=== PATIENT | male | born 1975 | race Two or more races ===

== ENCOUNTER 2019-05-06 00:22 | Emergency (ER) | payer SELFPAY ==
[~2019-05-06] VITALS: Ht 172.7 cm; Wt 72.6 kg
[2019-05-06 01:12] LABS: INFLUENZA A PATIENT NEGATIVE (NEGATIVE); INFLUENZA B PATIENT NEGATIVE (NEGATIVE)
[2019-05-06] MEDS ORDERED: IV NORMAL SALINE 1000ML BAG 1,000 ML IV ONE (02:30)
--- NOTE | 2019-05-06 02:31 | PHYS DOC ---
Past Medical History Past Medical History: No Pertinent History Past Surgical History: No Surgical History Alcohol Use: None Drug Use: None Adult General Chief Complaint Chief Complaint: FLU SYMPTOM HPI HPI 44 year old male presents to the emergency department with complaints of flulike symptoms states since Wednesday. Patient states he did go see his doctor on provided antibiotic at that time however states things got worse. She describes productive cough, fever, sore throat, nausea. He's tried [id number] nter medications without improvement. Nothing makes his symptoms worse, nothing makes his symptoms better. Review of Systems Review of Systems Constitutional: fever Eyes: Denies change in visual acuity, redness, or eye pain [] HENT: + sore throat Respiratory: cough/Sob Cardiovascular: No additional information not addressed in HPI [] GI: Denies abdominal pain, + nausea, no vomiting, bloody stools or diarrhea [] Musculoskeletal: back pain Neurologic: Denies headache, focal weakness or sensory changes [] All other systems were reviewed and found to be within normal limits, except as documented in this note. Current Medications Current Medications Current Medications Medications (Trade) Dose Ordered Sig/Patricia Start Time Stop Time Status Last Admin Dose Admin Albuterol/ Ipratropium (Duoneb) 3 ml 1X ONCE 05/06/19 04:45 05/06/19 04:46 05/06/19 04:40 3 ML Potassium Chloride (Klor-Con) 40 meq 1X ONCE 05/06/19 04:30 05/06/19 04:31 DC 05/06/19 04:30 40 MEQ Sodium Chloride 1,000 ml @ 1,000 mls/hr 1X ONCE 05/06/19 02:30 05/06/19 03:29 DC 05/06/19 02:49 1,000 MLS/HR Allergies Allergies Allergies Coded Allergies Type Severity Reaction Last Updated Verified Unable to Assess 05/06/19 No Physical Exam Physical Exam Constitutional: Well developed, well nourished, no acute distress, non-toxic appearance. [] HENT: Normocephalic, atraumatic, bilateral external ears normal, oropharynx moist, no oral exudates, nose normal. [] Eyes: PERRLA, EOMI, conjunctiva normal, no discharge. [] Neck: Normal range of motion, no tenderness, supple, no stridor. [] Cardiovascular: Tachycardia Lungs & Thorax: decreased bs Abdomen: Bowel sounds normal, soft, no tenderness, no masses, no pulsatile masses. [] Skin: Warm, dry, no erythema, no rash. [] Back: tenderness to back / paraspinal Extremities: No tenderness, no edema. [] Neurologic: Alert and oriented X 3, no focal deficits noted. [] Psychologic: Affect normal, judgement normal, mood normal. [] Current Patient Data Vital Signs Vital Signs Date Time Temp Pulse Resp B/P (MAP) Pulse Ox O2 Delivery O2 Flow Rate FiO2 05/06/19 04:32 98.6 98.6 05/06/19 04:20 111 120/71 (87) 97 Room Air 05/06/19 00:38 20 Lab Values Laboratory Tests Test 05/06/19 00:50 05/06/19 02:43 05/06/19 04:15 Influenza Type A Antigen Negative (NEGATIVE) Influenza Type B Antigen Negative (NEGATIVE) White Blood Count 15.1 x10^3/uL (4.0-11.0) H Red Blood Count 5.20 x10^6/uL (4.30-5.70) Hemoglobin 16.3 g/dL (13.0-17.5) Hematocrit 47.8 % (39.0-53.0) Mean Corpuscular Volume 92 fL (79-100) Mean Corpuscular Hemoglobin 31 pg (25-35) Mean Corpuscular Hemoglobin Concent 34 g/dL (31-37) Red Cell Distribution Width 13.4 % (11.5-14.5) Platelet Count 369 x10^3/uL (140-400) Neutrophils (%) (Auto) 78 % (31-73) H Lymphocytes (%) (Auto) 9 % (24-48) L Monocytes (%) (Auto) 12 % (0-9) H Eosinophils (%) (Auto) 1 % (0-3) Basophils (%) (Auto) 0 % (0-3) Neutrophils # (Auto) 11.8 x10^3/uL (1.8-7.7) H Lymphocytes # (Auto) 1.3 x10^3/uL (1.0-4.8) Monocytes # (Auto) 1.8 x10^3/uL (0.0-1.1) H Eosinophils # (Auto) 0.2 x10^3/uL (0.0-0.7) Basophils # (Auto) 0.0 x10^3/uL (0.0-0.2) D-Dimer (Janet) 0.33 ug/mlFEU (0.00-0.50) Sodium Level 137 mmol/L (136-145) Potassium Level 3.3 mmol/L (3.5-5.1) L Chloride Level 99 mmol/L (98-107) Carbon Dioxide Level 30 mmol/L (21-32) Anion Gap 8 (6-14) Blood Urea Nitrogen 15 mg/dL (8-26) Creatinine 1.0 mg/dL (0.7-1.3) Estimated GFR (Cockcroft-Gault) 80.4 BUN/Creatinine Ratio 15 (6-20) Glucose Level 115 mg/dL (70-99) H Lactic Acid Level 1.7 mmol/L (0.4-2.0) Calcium Level 9.7 mg/dL (8.5-10.1) Total Bilirubin 0.9 mg/dL (0.2-1.0) Aspartate Amino Transferase (AST) 42 U/L (15-37) H Alanine Aminotransferase (ALT) 68 U/L (16-63) H Alkaline Phosphatase 159 U/L (46-116) H Total Protein 9.4 g/dL (6.4-8.2) H Albumin 3.6 g/dL (3.4-5.0) Albumin/Globulin Ratio 0.6 (1.0-1.7) L Urine Collection Type Unknown Urine Color Yellow Urine Clarity Clear Urine pH 7.5 Urine Specific Corn 1.020 Urine Protein 100 mg/dL (NEG-TRACE) Urine Glucose (UA) Negative mg/dL (NEG) Urine Ketones (Stick) 15 mg/dL (NEG) Urine Blood Negative (NEG) Urine Nitrite Negative (NEG) Urine Bilirubin Negative (NEG) Urine Urobilinogen Dipstick 1.0 mg/dL (0.2 mg/dL) Urine Leukocyte Esterase Negative (NEG) Urine RBC Rare /HPF (0-2) Urine WBC Rare /HPF (0-4) Urine Squamous Epithelial Cells Occ /LPF Urine Bacteria 0 /HPF (0-FEW) Urine Mucus Slight /LPF Laboratory Tests 05/06/19 02:43 Laboratory Tests 05/06/19 02:43 EKG EKG [] Radiology/Procedures Radiology/Procedures wet read without acute consolidation appreciated, no pulmonary edema[] Course & Med Decision Making Course & Med Decision Making Pertinent Labs and Imaging studies reviewed. (See chart for details) []44 year old male presents to the emergency department with complaints of flulike symptoms states since Wednesday. Patient states he did go see his doctor on provided antibiotic at that time however states things got worse. She describes productive cough, fever, sore throat, nausea. He's tried over -the-counter medications without improvement. Nothing makes his symptoms worse, nothing makes his symptoms better. Was reviewed, potassium 3.3, lactic acid 1.7, white blood cell count 15.1. AST 42, ALT 68, alkaline phosphatase 159. Patient without acute complaints of abdominal pain. Chest x-ray without evidence of acute consolidation or effusion. DuoNeb provided. IV fluids 1 L Recommend dc home with fu with PCP and symptomatic treatment Continue abx as prescribed by PCP (mucinex/keflex) Return precautions provided Dragon Disclaimer Dragon Disclaimer This electronic medical record was generated, in whole or in part, using a voice recognition dictation system. Departure Departure Impression: Primary Impression: Viral syndrome Additional Impressions: Hypokalemia LFT elevation Disposition: HOME, SELF-CARE Condition: STABLE Referrals: CHRIS LUONG M.D. (PCP) Patient Instructions: Hypokalemia-Brief, Viral Syndrome Additional Instructions: Recommend follow up with PCP 3 - 5 days Return to the ER with worsening symptoms, intractable pain, fever, altered mental status Tylenol/Motrin as needed for pain Take antibiotics as prescribed by PCP Problem Qualifiers MIKE RUST MD May 06, 2019 02:31
[2019-05-06 03:00] LABS: BASO % 0 % (0-3); EOS # 0.2 x10^3/uL (0.0-0.7); EOS % 1 % (0-3); HEMATOCRIT 47.8 % (39.0-53.0); HEMOGLOBIN 16.3 g/dL (13.0-17.5); LYMPH # 1.3 x10^3/uL (1.0-4.8); LYMPH % 9 % (24-48); MEAN CORPUSCULAR HEMOGLOBIN 31 pg (25-35); MEAN CORPUSCULAR HGB CONC 34 g/dL (31-37); MEAN CORPUSCULAR VOLUME 92 fL (79-100); MONO # 1.8 x10^3/uL (0.0-1.1); MONO % 12 % (0-9); NEUT # 11.8 x10^3/uL (1.8-7.7); NEUT % 78 % (31-73); PLATELET COUNT 369 x10^3/uL (140-400); RED CELL DISTRIBUTION WIDTH 13.4 % (11.5-14.5); WHITE BLOOD COUNT 15.1 x10^3/uL (4.0-11.0)
[2019-05-06 03:08] LABS: CALCIUM 9.7 mg/dL (8.5-10.1); GFR 80.4; POTASSIUM 3.3 mmol/L (3.5-5.1)
[2019-05-06 03:13] LABS: ALBUMIN 3.6 g/dL (3.4-5.0); ALBUMIN/GLOBULIN RATIO 0.6 (1.0-1.7); TOTAL BILIRUBIN 0.9 mg/dL (0.2-1.0); TOTAL PROTEIN 9.4 g/dL (6.4-8.2)
--- NOTE | 2019-05-06 04:16 | RAD ---
EXAM: CHEST 1 VIEW History: Cough COMPARISON: None available. TECHNIQUE: Single portable radiograph of the chest FINDINGS: The cardiac silhouette is unremarkable. Patchy airspace opacities identified in the right lung base. The costophrenic sulci are clear and well demarcated. IMPRESSION: Patchy right lung base airspace opacities likely pneumonia or atelectasis. Follow-up to resolution. Electronically signed by: Jorgito Mack MD (05/06/2019 4:13 AM) [facility] [id number]
[2019-05-06 04:24] LABS: BILIRUBIN,URINE NEGATIVE (NEG); CLARITY,URINE CLEAR; COLOR,URINE YELLOW; NITRITE,URINE NEGATIVE (NEG); PH,URINE 7.5; PROTEIN,URINE 100 mg/dL (NEG-TRACE)
[2019-05-06 04:29] LABS: SQUAMOUS EPITHELIAL CELL,UR OCC /LPF
[2019-05-06 04:30] LABS: BACTERIA,URINE 0 /HPF (0-FEW); RBC,URINE RARE /HPF (0-2); WBC,URINE RARE /HPF (0-4)
[2019-05-06] MEDS ORDERED: POTASSIUM CHLORIDE 20 MEQ TABLET.ER. PO ONE (04:30)
[2019-05-06] MEDS ORDERED: IPRATRPIUM/ALBUTEROL 0.5/2.5MG 3 ML NEBU. NEB ONE (04:45)
[2019-05-06 04:50] VITALS: BP 113/67
== END 2019-05-06 04:50 | disposition home or self-care (01) ==
LOC: ER 00:22
DX: B34.9 Viral infection, unspecified (principal); E87.6 Hypokalemia; R94.5 Abnormal results of liver function studies; Z79.899 Other long term (current) drug therapy
CPT/HCPCS: 36415; 71045; 80053; 81001; 83605; 85025; 85379; 87804; 94640; 99285; J7030; J7620